=== PATIENT | female | born 1960 | race Caucasian/White ===

== ENCOUNTER 2020-03-10 10:33 | Outpatient (REF) | payer OTHER, SELFPAY | END 2020-03-10 10:34 | disposition home or self-care (01) | LOC: HO.LAB 10:33 | PROVIDERS: Visit Provider Internal Medicine | DX: Z20.828 Contact with and (suspected) exposure to other viral communicable diseases (principal) | CPT/HCPCS: 87635 ==

== ENCOUNTER 2025-01-21 09:38 | Outpatient (AMB) | payer OTHER, SELFPAY ==
--- NOTE | 2025-01-21 09:58 | A.OFFPC_ITS ---
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: New patient visit Principal Architectural Firm Required: No Allergies No Known Allergies Allergy (Verified 01/21/25 10:03) Tobacco use date assessed: 01/21/25 Fall risk assessment: No Falls in past year Last assessed Fall Risk: 01/21/25 Dental Screening Dental Screen Date: 01/21/25 Did you have a dental visit in the last 12 months?: Yes Did you have a dental problem in the last 6 months where you did not have access to dental care?: No Was dental information given to patient?: Patient has dentist HPI HPI Comments History of Present Illness Details The patient is a 64 year old female with past medical history of hip OA presenting to [facility]. Previously at [facility]-hasnt seen pcp for years. s/p right hip replacement 2021-[facility]. Left hip has been bothering her but she is not ready for referral Extremely frustrated by weight. She eats low calorie diet, exercises and has followed weight watchers for years. Sees section leader - Stephanie Delgado Mammo Apr 2024-Qian Peguero colon cancer screening ROS CONSTITUTIONAL: Denies weight loss, fever and chills. HEENT: Denies changes in vision and hearing. RESPIRATORY: Denies SOB and cough. CV: Denies palpitations and CP GI: Denies abdominal pain, nausea, vomiting and diarrhea. : Denies dysuria and urinary frequency. MSK: Denies new myalgia and joint pain. SKIN: Denies rash and pruritus. NEUROLOGICAL: Denies headache PSYCHIATRIC: Denies recent changes in mood. PHYSICAL EXAM: GENERAL: Alert and oriented x 3. NAD EYES: EOMI. Anicteric. HENT: Moist mucous membranes. No scleral icterus. No cervical lymphadenopathy. LUNGS: Clear to auscultation bilaterally. CARDIOVASCULAR: Regular rate and rhythm. No murmur. No JVD. ABDOMEN: Soft, non-tender +bs EXTREMITIES: No edema. Non-tender. SKIN: No rashes or lesions. Warm. NEUROLOGIC: No focal neurological deficits. CN II-XII grossly intact PSYCHIATRIC: Cooperative. Appropriate mood and affect [facility] Surgical History H/O section History of hip replacement Family History Paternal Grandmother Diabetes Alcoholism Other Prostate cancer Substance abuse Social History Housing: House Alcohol intake: current Patient Tobacco Use Status: Never used Tobacco e-Cigarette/Vaping Use: Never Used service: No Current occupational status: retired Cognitive needs: No Hearing needs: No Vision needs: No Questionnaire PHQ-9 Over the last 2 weeks, how often have you been bothered by any of the following problems? 1. Little interest or pleasure in doing things: not at all 2. Feeling down, depressed, or hopeless: not at all 3. Trouble falling or staying asleep, or sleeping too much: not at all 4. Feeling tired or having little energy: more than half the days 5. Poor appetite or overeating: more than half the days 6. Feeling bad about yourself - or that you are a failure or have let yourself or your family down: more than half the days 7. Trouble concentrating on things, such as reading the newspaper or watching television: not at all 8. Moving or speaking so slowly that other people could have noticed. Or the opposite - being so fidgety or restless that you have been moving around a lot more than usual: not at all 9. Thoughts that you would be better off or of hurting yourself in some way: not at all Total score: 6 Depression Screening Interpretation: Positive Depression Screening Follow-up: Declines treatment Depression Screening Done: Yes 68644 - PHQ-9 Billing: Yes Source: Developed by Drs. García Hampton, Jennifer Calvert, Mariano Houser and colleagues, with an educational jose from [employer]. Thrive Questionnaire Date Thrive assessed: 01/14/25 I am a: Patient What is your living situation today?: I have a steady place to live Within the past 12 months, did the food you bought not last and you didn't have the money to get more?: Never true Within the past 12 months, did you worry whether your food would run out before you got money to buy more?: Never true Do you have trouble paying for medicines?: No Do you have trouble getting transportation to medical appointments?: No Do you have trouble paying your heating and electricity bill?: No Do you have trouble taking care of your child, family member or friend?: No Do you have trouble with day-to-day activities such as bathing, preparing meals, shopping, managing finances, etc.?: No Are you currently unemployed and looking for a job?: No Are you interested in more education?: No Please select the resources that you would like help with: None Currently or been in a relationship where the following occur: No concerns reported THRIVE Score: 0 AUDIT C Alcohol Use Questionnaire (AUDIT-C) 1. How often do you have a drink containing alcohol?: 2-3 times a week 2. How many drinks containing alcohol do you have on a typical day when you are drinking?: 5 or 6 3. How often do you have six or more drinks on one occasion?: Never Total Score: 5 Physical exam (Primary Care) Vital Signs: Last Vital Signs Temp 98.3 F 01/21/25 10:07 Pulse 72 01/21/25 10:07 Resp 14 01/21/25 10:07 BP 122/82 01/21/25 10:07 Pulse Ox 98 01/21/25 10:07 Oxygen Delivery Method Room Air 01/21/25 10:07 BMI result Body Mass Index 30.6 Tobacco/Smoking Status: Tobacco use Status Tobacco use date assessed 01/21/25 01/21/25 10:07 Patient Tobacco Use Status Never used Tobacco 01/21/25 10:13 e-Cigarette/Vaping Use Never Used 01/21/25 10:13 PHQ-9: PHQ-9 Score PHQ-9: Total score 6 01/21/25 10:16 Depression Screening Interpretation: Positive Depression Screening Follow-up: Declines treatment Thrive Assessment: Date of Thrive Assessment Date Thrive assessed 01/14/25 01/21/25 09:58 Currently or been in a relationship where the following occur: No concerns reported Coding Level of Care Code New Pt Level 3 (05178) Complex EM visit Add On G2211 Diagnoses Encounter to establish care Z76.89 Primary osteoarthritis of both hips M16.0 Osteoarthritis location: hip Osteoarthritis type: primary Laterality: bilateral Obesity (BMI 30.0-34.9) E66.811 Additional Codes PHQ-9 - 83666 - PHQ-9 Billing: Yes ([id number]) Assessment & Plan Assessment & Plan (1) Encounter to establish care: Code(s): Z76.89 - Persons encountering health services in other specified circumstances (2) Osteoarthritis: Code(s): M19.90 - Unspecified osteoarthritis, unspecified site Category: Medical Qualifiers: Osteoarthritis location: hip Osteoarthritis type: primary Laterality: bilateral Qualified Code(s): M16.0 - Bilateral primary osteoarthritis of hip (3) Obesity (BMI 30.0-34.9): Code(s): E66.811 - Obesity, class 1 Category: Medical Plan 64 year old to establish care Past medical, surgical, social reviewed Obesity, due for labs-would like to consider glp as has failed dietary lifestyle changes preventive measures discussed. cologuard ordered Orders: Orders Complete Blood Count Auto Diff Today M19.90 - Unspecified osteoarthritis, uns pecified site, R63.5 - Abnormal weight gain, Z13.0 - Encounter for screening for diseases of the blood and blood-forming organs and certain disorders involving the immune mechanism Lipid Panel Today M19.90 - Unspecified osteoarthritis, unspecified site, R63.5 - Abnormal weight gain, Z13.220 - Encounter for screening for lipoid disorders TSH reflex Free T4 Today M19.90 - Unspecified osteoarthritis, unspecified site, R63.5 - Abnormal weight gain Hemoglobin A1c Today M19.90 - Unspecified osteoarthritis, unspecified site, R63.5 - Abnormal weight gain Comprehensive Met. Panel Today M19.90 - Unspecified osteoarthritis, unspecified site, R63.5 - Abnormal weight gain Referrals Cologuard Test Z12.11 - Encounter for screening for malignant neoplasm of colon, Z12.12 - Encounter for screening for malignant neoplasm of rectum Medications: New Zepbound (tirzepatide (weight loss)) for 4 weeks 2.5 mg (0.5 mL) subcut QWEEK 2 mL 1RF NS E66.811 - Obesity, class 1 Zepbound (tirzepatide (weight loss)) 2.5 mg (0.5 mL) subcut QWEEK 2 mL 3RF 4 weeks NS E66.811 - Obesity, class 1
[2025-01-21 10:07] VITALS: BP 122/82; PULSE 72; RESP 14; TEMP 36.8; O2SAT 98; BMI 30.6
--- OUTSIDE RECORDS SUMMARY | 2025-01-21 11:06 | XMS_ITS | Patient Health Record ---
Author Organization [facility] Address [address] [facility] [address] [place] [address] Care Team Providers Care Lead Network Architect Name Role Phone SUE CHONG Unavailable [phone] Allergies No Known Allergies Reason For Referral No Information Social History Tobacco Use: Social History Observation Description Date Details (start date - stop date) Never Smoker NA - NA Tobacco Use/Smoking Question Answer Notes Are you a nonsmoker AUDIT-C (Standard) Question Answer Notes Did you have a drink contain ing alcohol in the past year? Yes How often did you have six o r more drinks on one occasion in the past year? Less than monthly (1 point) How many drinks did you have on a typical day when you were drinking in the past year? 3 or 4 drinks (1 point) How often did you have a dri nk containing alcohol in the past year? 2 to 3 times a week (3 points) Points 5 Interpretation Positive Problems Problem Type SNOMED Code ICD Code Onset Dates Problem Status W/U Status Risk Notes Problem COVID-19 (045908613) COVID-19 (U07.1) Active confirmed Problem Body mass index 30.00 to 34.99 ([id number]) Body mass index [BMI] 32.0-32.9, adult (Z68.32) Active confirmed Vital Signs Temperature 97.0 degrees Fahrenheit 04/29/2024 Blood pressure diastolic 78 mm Hg 04/29/2024 Height 64 in 04/29/2024 Blood pressure systolic 126 mm Hg 04/29/2024 Weight 168 lbs 04/29/2024 BMI 28.83 kg/m2 04/29/2024 Encounters Encounter Location Date Provider Diagnosis [facility] [address] [facility] [address] [place] [address] 04/29/2024 SUE CHONG Encounter for gynecological examination (general) (routine) without abnormal findings Z01.419 and Encounter for screening mammogram for malignant neoplasm of breast Z12.31 Assessments Encounter Date Diagnosis (ICD Code) Assessment Notes Treatment Notes Treatment Clinical Notes Section Notes 04/29/2024 Encounter for gynecological examination (general) (routine) without abnormal findings (ICD-10 - Z01.419) During the visit, the following areas of concern were addressed: Discussed cervical cancer screening with either cytology alone every 3 years or high risk HPV co-testing every 5 years as per ASCCP guidelines. Advised continued annual pelvic exams. Patient encouraged to increase her level of exercise. SBE technique encouraged/tau ght. Patient reminded when annual mammogram is due. Patient encouraged to keep colon screening up to date. 04/29/2024 Encounter for screening mammogram for malignant neoplasm of breast (ICD-10 - Z12.31) Plan Of Treatment Pending Test Test Name Order Date Bone Density 04/15/2020 THIN PREP,HPV,NAHID IF HPV+/CYT-,CT/GC(>2 9YR)(SCRN) 03/16/2016 MM Digital Mammo Screening 03/16/2021 MM Digital Screening Mammogram 3D 2021 MM Digital Screening Mammogram 3D 2022 MM Digital Screening Mammogram 3D 2023 Next Appt Details Provider Name:SUE Dowell, 05/01/2025 09:30:00 AM, [address], [address], [place], [address], Insurance Providers Payer Name Payer Address Payer Phone Subscriber Number Group Number Insured Name Patient Relationship to Insured Coverage Start Date Coverage End Date [employer] [place] [address] [place] [address] [id number] JULISSA WOODWARD Spouse - patient is the spouse of the insured Medical (General) History Medical History History ICD Code COVID-19 U07.1 Surgical History Surgery Date(Month/Year) C SECTION 1991 C SECTION 1994 Right Hip Replacement 01/2022 Hospitalization History Reason Date(Month/Year) childbirth
== END 2025-01-21 10:27 | disposition home or self-care (01) ==
LOC: HO.HMCFM 09:38
PROVIDERS: Visit Provider Internal Medicine
DX: M16.0 Bilateral primary osteoarthritis of hip (principal); Z76.89 Persons encountering health services in other specified circumstances; E66.811 Obesity, class 1; Z68.30 Body mass index [BMI] 30.0-30.9, adult

== ENCOUNTER 2025-01-21 09:38 | Outpatient (REF) | payer OTHER, SELFPAY ==
--- OUTSIDE RECORDS SUMMARY | 2025-01-21 13:16 | XMS_ITS | Clinical Summary ---
Author Organization [facility] Address [address] [place] [phone] Phone Care Team Providers Care Practice Specialist Name Role Phone Stephanie Delgado MD Primary Care Provider [phone] Social History Tobacco Use Types Packs/Day Years Used Date Smoking Tobacco: Never Assessed Comments No Sex and Gender Information Value Date Recorded Sex Assigned at Female 04/26/2024 4:17 PM EST Legal Sex Female 7:50 AM EST Gender Identity Female 04/26/2024 4:17 PM EST Sexual Orientation Not on file Obstetrics History Para Term AB IAB SAB Ectopic Multiple Livin g Live Births 2 Last Filed Vital Signs Vital Sign Reading Time Taken Comments Blood Pressure - - Pulse - - Temperature - - Respiratory Rate - - Oxygen Saturation - - Inhaled Oxygen Concentration - - Weight 74.8 kg (165 lb) 04/27/2024 10:04 AM EST Height 162.6 cm (5' 4 ) 04/27/2024 10:04 AM EST Body Mass Index 28.32 04/27/2024 10:04 AM EST Plan of Treatment Health Maintenance Due Date Last Done Comments DTaP,Tdap,and Td Vaccines (1 - Tdap) 09/05/1979 Cervical Cancer Screening: Pap Smear 1981 Pneumococcal Vaccine: 50+ Years (1 of 1 - PCV) 2010 Zoster Vaccines (1 of 2) 2010 Colorectal Cancer Screening: Colonoscopy 04/17/2022 HIV Screening 04/17/2022 Hepatitis C Screening 04/17/2022 Social Influencers of Health Screening 04/17/2022 Depression Screening 05/15/2024 COVID-19 Vaccine ( season) 2025 05/25/2021, 09/17/2020, 08/20/2020 Influenza Vaccine (#1) 2025 Breast Cancer Screening 04/27/2026 04/27/20, 04/24/2023, 04/17/2022, Additional history exists RSV Immunization Adult Patients (1 - 1-dose 75+ series) 09/05/2035 HIB Vaccines Aged Out No longer eligi ble based on patient's age to complete this topic HPV Vaccines Aged Out No longer eligi ble based on patient's age to complete this topic Hepatitis A Vaccines Aged Out No long er eligible based on patient's age to complete this topic Hepatitis B Vaccines Aged Out No long er eligible based on patient's age to complete this topic IPV Vaccines Aged Out No longer eligi ble based on patient's age to complete this topic MMR Vaccines Aged Out No longer eligi ble based on patient's age to complete this topic Meningococcal ACWY Vaccine Aged Out N o longer eligible based on patient's age to complete this topic Meningococcal B Vaccine Aged Out No l onger eligible based on patient's age to complete this topic RSV Immunization Patients Under 20 months Aged Out No longer eligible based on patient's age to complete this topic Varicella Vaccines Aged Out No longer eligible based on patient's age to complete this topic Procedures Procedure Name Priority Date/Time Associated Diagnosis Comments MG MAMMO DIGITAL SCREENING W JURGEN BILAT Routine 04/27/2024 10:14 AM EST Encounter for screening mammogram for breast cancer from Last 3 Months or Most Recently Relevant to Health Maintenance Results * MG Mammo Digital Screening w Jurgen bilat (04/27/2024 10:14 AM EST) Anatomical Region Laterality Modality Breast Bilateral Mammography 04/30/2024 12:3 6 PM EST Impressions 04/30/2024 12:39 PM EST Stable mammographic appearance of the breasts. No evidence of malignancy is seen. A negative mammogram in the presence of a clinically suspicious palpable abnormality does not preclude the possibility of malignancy or alter the indications for biopsy. BI-RADS: Category 1: Negative RECOMMENDATION(S): 1: Routine screening mammogram BILATERAL in 1 year. -------- FINAL REPORT -------- Dictated By: JOSELO WINSTON Dictated Date: 04/30/2024 12:36 ET Assigned Physician: JOSELO WINSTON Reviewed and Electronically Signed By: JOSELO WINSTON Signed Date: 04/30/2024 12:39 ET Workstation ID: [id number] Transcribed By: Self Edit Transcribed Date: 04/30/2024 12:36 ET Narrative 04/30/2024 12:39 PM EST EXAM: MG MAMMO DIGITAL SCREENING W JURGEN BILAT EXAM DATE AND TIME: 04/27/2024 10:04 AM HISTORY: Screening mammogram for breast cancer COMPARISON: 04/22/2023 through 02/22/2020 TECHNIQUE: Bilateral digital breast tomosynthesis was performed in the CC and MLO projections. Computer aided detection with [employer] AI 3D 3.1 was employed. TISSUE DENSITY: b. There are scattered areas of fibroglandular density. FINDINGS: No suspicious masses, grouped microcalcifications, or areas of architectural distortion are seen. The skin and vascularity are unremarkable. Procedure Note Joselo Winston MD - 04/30/2024 EXAM: MG MAMMO DIGITAL SCREENING W JURGEN BILAT EXAM DATE AND TIME: 04/27/2024 10:04 AM HISTORY: Screening mammogram for breast cancer COMPARISON: 04/22/2023 through 02/22/2020 TECHNIQUE: Bilateral digital breast tomosynthesis was performed in the CCand MLO projections. Computer aided detection with [employer] AI 3D 3.1was employed. TISSUE DENSITY: b. There are scattered areas of fibroglandular density. FINDINGS: No suspicious masses, grouped microcalcifications, or areas ofarchitectural distortion are seen. The skin and vascularity areunremarkable. IMPRESSION: Stable mammographic appearance of the breasts. No evidence of malignancyis seen. A negative mammogram in the presence of a clinically suspicious palpableabnormality does not preclude the possibility of malignancy or alter theindications for biopsy. BI-RADS: Category 1: Negative RECOMMENDATION(S): 1: Routine screening mammogram BILATERAL in 1 year. -------- FINAL REPORT -------- Dictated By: JOSELO WINSTON Dictated Date: 04/30/2024 12:36 ET Assigned Physician: JOSELO WINSTON Reviewed and Electronically Signed By: JOSELO WINSTON Signed Date: 04/30/2024 12:39 ET Workstation ID: [id number] Transcribed By: Self Edit Transcribed Date: 04/30/2024 12:36 ET us Self Referral Sppl IMG BI PROCEDURES Final Resul t from Last 3 Months or Most Recently Relevant to Health Maintenance Insurance [facility] [[email or web address] Member Subscriber Plan / Payer ( fective 2024-Present) Name:Berry Bang Relation to Subscriber:Spouse Name:BERRY BANG Date of :1960 (Home) [address]: [address] [place] [id number] Payer ID:[id number] Type:Not on file Address: [facility] [id number] Care Teams Practice Specialist Relationship Specialty Start Date End Date Stephanie Delgado MD [address] [place] [phone] PCP - General Obstetrics and Gynecology 04/27/24
[2025-01-21 14:11] LABS: MANUAL DIFF FLAG NO
[2025-01-21 14:26] LABS: Hematocrit 37.8 % (37.0-47.0); Hemoglobin 12.3 g/dl (12.0-16.0); Imm Gran Abs Auto 0.02 X10*3/uL (0.00-0.03); Imm Gran Pct Auto 0.3 % (0.0-0.4); Lymphocytes Absolute Auto 1.4 X10*3/uL (1.2-4.9); Mean Corpuscular HGB Conc 32.5 g/dl (31.0-35.0); Mean Corpuscular Hemoglobin 29.1 pg (27.0-33.0); Mean Corpuscular Volume 89.4 fL (80.0-98.0); NRBC Abs Auto 0.000 X10*3/uL (0.0-0.012); NRBC Pct Auto 0.0 /100WBC (0.0-0.2); Platelet Count 287 X10*3/uL (160-400); Red Blood Count 4.23 X10*6/uL (4.20-5.50); White Blood Count 6.2 X10*3/uL (4.8-10.8)
[2025-01-21 14:55] LABS: Alanine Aminotransferase 13 U/L (0-31); Albumin Level 4.5 g/dL (3.5-5.0); Alkaline Phosphatase 43 U/L (39-117); Anion Gap 13 (12-20); Aspartate Amino Transferase 18 U/L (5-31); Blood Urea Nitrogen 28 mg/dL (9-16); Calcium 9.3 mg/dL (8.4-10.2); Carbon Dioxide 27 mmol/L (22-29); Chloride 106 mmol/L (96-108); Cholesterol 267 mg/dL (<200); Estimated Glomerular Filt Rate > 60; HDL Cholesterol 68 mg/dL (>40); Potassium 4.2 mmol/L (3.3-5.1); Sodium 142 mmol/L (135-145); Total Protein 6.9 g/dL (6.5-8.0); Triglycerides 71 mg/dL (<150)
== END 2025-01-21 09:39 | disposition home or self-care (01) ==
LOC: HO.WFDLDS 09:38
PROVIDERS: Visit Provider Internal Medicine
DX: Z13.0 Encounter for screening for diseases of the blood and blood-forming organs and certain disorders involving the immune mechanism (principal); Z13.220 Encounter for screening for lipoid disorders; Z76.89 Persons encountering health services in other specified circumstances; R63.5 Abnormal weight gain; M19.90 Unspecified osteoarthritis, unspecified site; M16.0 Bilateral primary osteoarthritis of hip; E66.811 Obesity, class 1; Z68.30 Body mass index [BMI] 30.0-30.9, adult
CPT/HCPCS: 36415; 80053; 80061; 83036; 84443; 85025; 96127; 99202